=== PATIENT | male | born 1995 | race Two or more races ===

== ENCOUNTER 2016-05-14 14:30 | Emergency (ER) | payer MEDICAID ==
[~2016-05-14] VITALS: Ht 175.3 cm; Wt 73.0 kg
[~2016-05-14 14:30] MED LIST: IOHEXOL-300 100 ML BOTTLE ONE; SODIUM CHLORIDE 0.9% 10ML VIAL ONE
[2016-05-14] MEDS ORDERED: ONDANSETRON HCL 4MG/2ML VIAL IV STA (16:09)
[2016-05-14] MEDS ORDERED: MORPHINE SULFATE 4 MG/ML CPJ (NOT FOR IM USE) IV STA (16:09)
[2016-05-14] MEDS ORDERED: SODIUM CHLORIDE 0.9% 1,000 ML IV ONE (16:09)
[2016-05-14 16:36] LABS: BASOPHILS % 0.7 % (0.0-2.0); HEMATOCRIT. 43.9 % (42.0-52.0); HEMOGLOBIN. 15.5 g/dL (14.0-18.0); LYMPHOCYTES % 20.3 % (20.0-50.0); MEAN CORPUSCULAR HEMOGLOBIN 31.2 pg (28.0-32.0); MEAN CORPUSCULAR HGB CONC 35.3 g/dL (31.0-37.0); MEAN CORPUSCULAR VOLUME 88.6 fL (80.0-94.0); MEAN PLATELET VOLUME 7.9 fl (7.4-10.4); MONOCYTES % 7.5 % (2.0-8.0); NEUTROPHILS % 68.5 % (40.0-76.0); PLATELET 218 x1000/uL (130-400); RED BLOOD CELL COUNT 4.95 mill/uL (4.7-6.1); WHITE BLOOD COUNT 10.1 x1000/uL (4.5-11.0)
[2016-05-14 16:48] LABS: ALANINE AMINOTRANSFERASE 35 IU/L (13-61); ALBUMIN 4.3 g/dL (3.4-5.0); AMYLASE 51 IU/L (25-115); ANION GAP 8; CALCIUM 8.9 mg/dL (8.5-10.1); CARBON DIOXIDE 29 mEq/L (21-32); CHLORIDE 108 mEq/L (98-107); INDEX HEMOLYSI 1 (1-3); INDEX ICTERIC 1 (1-4); INDEX LIPEMIC 1 (1-3); LIPASE 100 IU/L (73-393); UREA NITROGEN BLOOD 10 mg/dL (7-21); eGFR > 60 mL/min (>60)
[2016-05-14 17:14] VITALS: BP 137/75
== END 2016-05-14 19:39 | disposition home or self-care (01) ==
LOC: ER 14:45
DX: M25.511 Pain in right shoulder (principal); M54.2 Cervicalgia; J34.89 Other specified disorders of nose and nasal sinuses; F41.9 Anxiety disorder, unspecified; J45.909 Unspecified asthma, uncomplicated; F17.210 Nicotine dependence, cigarettes, uncomplicated; F12.10 Cannabis abuse, uncomplicated; V89.2XXA Person injured in unspecified motor-vehicle accident, traffic, initial encounter; Y93.89 Activity, other specified; Y92.488 Other paved roadways as the place of occurrence of the external cause; Y99.8 Other external cause status
CPT/HCPCS: 36415; 70450; 70486; 71260; 72125; 73030; 74177; 80053; 82150; 83690; 85025; 96374; 96375; 99285; A4216; J2270; J2405; J7030; Q9967; Z7610